=== PATIENT | female | born 1980 | race Caucasian/White ===

== ENCOUNTER 2019-10-01 10:52 | Emergency (ER) | payer BC ==
[2019-10-01 11:55] VITALS: BP 147/103
--- NOTE | 2019-10-01 11:56 | ER Document Report ---
HPI - HPI Patient complains to provider of: Neck pain Time Seen by Provider: 10/01/19 11:40 Onset: Other - 2 weeks Onset/Duration: Persistent Quality of pain: Achy Pain Level: 3 Context: Patient presents with complaints of neck pain for the past 2 weeks. Patient states that she has a history of high blood pressure and she was recently started on blood pressure medication although her blood pressure reading is not in the normal range at this time. And states that she has been taking the medication daily since being prescribed and her blood pressure has not returned to the normal range yet. Patient denies any injury, fever, chest pain or shortness of breath. Patient reports mild headache. Patient complains of neck and upper back pain for the past 2 weeks that has her worried about her blood pressure being elevated still. Patient does acknowledge anxiety about her health. Associated Symptoms: Headache. denies: Nausea, Vomiting Exacerbated by: Movement Relieved by: Denies Similar symptoms previously: No Recently seen / treated by doctor: Yes - ROS ROS below otherwise negative: Yes Systems Reviewed and Negative: Yes All other systems reviewed and negative - CONSTITUTIONAL Constitutional: DENIES: Fever, Chills - NEURO Neurology: REPORTS: Headache. DENIES: Weakness, Vision blurred - CARDIOVASCULAR Cardiovascular: DENIES: Chest pain - RESPIRATORY Respiratory: DENIES: Trouble Breathing, Coughing - GASTROINTESTINAL Gastrointestinal: DENIES: Abdominal Pain, Nausea, Patient vomiting - MUSCULOSKELETAL Musculoskeletal: REPORTS: Back Pain - DERM Skin Color: Normal Skin Problems: None Past Medical History - General Information source: Patient - Social History Smoking Status: Never Smoker Frequency of alcohol use: None Drug Abuse: None Occupation: Retail Family History: Reviewed & Not Pertinent - Past Medical History Cardiac Medical History: Reports: Hx Hypertension Past Surgical History: Reports: Hx Appendectomy Vertical Provider Document - CONSTITUTIONAL Agree With Documented VS: Yes Exam Limitations: No Limitations General Appearance: WD/WN, No Apparent Distress Notes: PHYSICAL EXAMINATION: GENERAL: Well-appearing and in no acute distress. HEAD: Atraumatic, normocephalic. EYES: sclera anicteric, conjunctiva are normal. ENT: nares patent. Moist mucous membranes. NECK: Normal range of motion, supple without lymphadenopathy, no meningismus LUNGS: CTAB and equal. No wheezes rales or rhonchi. HEART: Regular rate and rhythm without murmurs EXTREMITIES: Normal range of motion, no pitting edema. No cyanosis. BACK: Bilateral trapezius muscle tenderness with spasm, pain reproduced with palpation no midline tenderness, no step-off or deformity. No CVA tenderness NEUROLOGICAL: Cranial nerves grossly intact. Normal speech. Normal gait. PSYCH: Anxious SKIN: Warm, Dry, normal turgor, no rashes or lesions noted Course - Re-evaluation Re-evalutation: 10/01/19 11:53 Patient with what appears to be a tension headache at this time with bilateral trapezius muscle tenderness. Patient mildly hypertensive. Patient advised that her blood pressure should be decreased gradually over time and not just immediately dropped to prevent any adverse outcomes. Offered patient CT imaging of the head given her complaints of headache pain. Patient declines CT imaging at this time and prefers to treat her neck pain symptoms and to follow-up with her primary doctor next week for recheck of her blood pressure. Patient has been keeping a log of her readings. - Vital Signs Vital signs: Temp Pulse Resp BP Pulse Ox 98.4 F 76 18 171/122 H 97 10/01/19 10:56 10/01/19 10:56 10/01/19 10:56 10/01/19 10:56 10/01/19 10:56 Discharge - Discharge Clinical Impression: Trapezius muscle spasm, Anxiety about health Headache Qualifiers: Headache type: unspecified Headache chronicity pattern: unspecified pattern Intractability: not intractable Qualified Code(s): R51 - Headache Condition: Stable Disposition: HOME, SELF-CARE Instructions: Headache ([facility]), Muscle Relaxers ([facility]), Upper Back Strain ([facility]) Additional Instructions: Return immediately for any new or worsening symptoms: Worsening headache, vomiting, chest pain shortness of breath or any concerning new symptoms Followup with your primary care provider, call tomorrow to make a followup appointment Decrease sodium in your diet Keep a log of your blood pressure readings and present to your doctor next week as planned Prescriptions: Lidocaine [Lidoderm 5% (700 mg) Transdermal Patch] 1 patch TP DAILY PRN #10 adh..patch PRN Reason: Methocarbamol [Robaxin 500 Mg Tablet] 500 mg PO QID PRN #30 tablet PRN Reason: Referrals: AMILCAR ABDI PA-C [Primary Care Provider] - Follow up as needed
== END 2019-10-01 11:59 | disposition home or self-care (01) ==
LOC: ER 10:52
DX: M62.830 Muscle spasm of back (principal); R51 Headache; F41.8 Other specified anxiety disorders; M54.2 Cervicalgia; I10 Essential (primary) hypertension
CPT/HCPCS: 99283